=== PATIENT | male | born 1970 | race Caucasian/White ===

== ENCOUNTER 2016-03-31 20:43 | Emergency (ER) | payer BC ==
--- NOTE | 2016-03-31 22:01 | DIAGNOSTIC IMAGING REPORT ---
PROCEDURE: XR CHEST 2 VIEW INDICATION: Chest pain. Recent diagnosis of pulmonary embolus. TECHNIQUE: PA and lateral views. COMPARISON: Compared to CTA thorax on 03/23/2016. FINDINGS: Allowing for overlying wires and electrodes, lungs are clear. Heart and mediastinum are normal. Thorax is normal. IMPRESSION: 1. Negative chest.
--- NOTE | 2016-04-01 01:49 | ED ORDER SUMMARY ---
..... Patient: TARYN DEVINE OrderSheet [facility] VisitID: [id number] [place] [address] 46y, M Registration Date/Time: 03/31/2016 ORDER SHEET Weight: 104.3 kg (stated) Allergies: None GENERAL ORDERS: Cardiac Panel Stat (20:58 03/31/2016 DBeyer R.N. per protocol) (Ack 21:00 LTapper) (21:39 LTapper) PT with INR Urgent (20:58 03/31/2016 DBeyer R.N. per protocol) (Ack 21:00 LTapper) (21:39 LTapper) EKG - ER Stat (:58 03/31/2016 DBeyer R.N. per protocol) (Ack 21:00 LTapper) (21:24 LTapper) Chest 2V (recent PE) Urgent (21:20 [facility]/2016 [facility] (21:39 LTapper) Troponin-I (at 01:00) Urgent (23:02 [facility]2016 [facility] (Ack 23:03 Andreekimana) (1:40 Vimal R.N.) EKG - ER Repeat Stat (01:29 04/01/2016 [facility] (Ack 1:33 Teresitaegekimana) MEDICATION ORDERS: - (coumadin 10 mg po) (22:31 03/31/2016 [facility]) (22:44 DBeyer R.N.) Lovenox Subcut 100 mg (NOW) (22:31 03/31/2016 [facility] DO) (22:40 DBeyer R.N.) IV FLUIDS: IV Saline Lock (20:58 03/31/2016 DBeyer R.N. per protocol) (21:20 DBeyer R.N.) ORDER SHEET NOTES: [Electronically signed by Antonio Rizvi R.N. (02:20 04/01/2016)] [Electronically signed by Clarence Joseph DO (03:24 04/01/2016)] [Electronically locked/signed by Antonio Rizvi R.N. (02:20 04/01/2016)]
--- NOTE | 2016-04-01 01:49 | ED CLINICAL REPORT ---
Clinical Report - Physicians/Mid Levels [facility] [address] [place] [address] 03/31/2016 20:44 Patient: TARYN DEVINE Time Seen: 21:18. Arrived- By ambulance. Historian- patient and EMS personnel. HISTORY OF PRESENT ILLNESS Chief Complaint: CHEST DISCOMFORT. It is described as sharp and "pain" and it is described as located in the central chest and left chest area. No radiation. This started just prior to arrival and is still present. It was gradual in onset and has been waxing/waning. Onset during light activity. At its maximum, severity described as moderate. When seen in the E.D., severity described as mild. Modifying factors- worsened by movement. Relieved by rest. No nausea, vomiting, difficulty breathing or diaphoresis. Similar symptoms previously: ( States he had a similar presentation about 2 years ago - had negative cardiac w/u including ECG, cardiac serum markers, echocardiogram and stress test - all done at [facility]). Recent medical care: The patient was seen recently at this facility in the emergency department. Seen for similar symptoms. Evaluation/treatment: CT, labs and EKG. Diagnosis: (PE). REVIEW OF SYSTEMS No fever, chills, cough. No blood tinged sputum or frankly bloody sputum, pedal edema or calf pain. No fainting episodes, headache, sore throat, blurred vision or abdominal pain. No black stools, difficulty with urination, skin rash, enlarged lymph nodes or joint pain. No bloody stools. All systems otherwise negative, except as recorded above. PAST HISTORY Pulmonary embolism. PCP: Dr Canela. No history of aortic disease, coronary artery disease or congestive heart failure. Deep venous thrombosis. Surgeries: Vasectomy. Medications: Warfarin Sodium Oral 10 mg, daily (on tapering dose ). Allergies: None. SOCIAL HISTORY Never smoker. No alcohol use or drug use. ADDITIONAL NOTES The nursing notes have been reviewed. PHYSICAL EXAM Vital Signs: 03/31/2016 20:57 Temp: 98.3 F. 03/31/2016 20:54 BP: 128/73. HR: 74. RR: 18. O2 saturation: 94%. Appearance: Alert. Oriented X3. Anxious. Patient in mild distress. Eyes: Pupils equal, round and reactive to light. Eyes normal inspection. No scleral icterus or pale conjunctivae. ENT: Pharynx normal. No pharyngeal erythema or tonsillar exudate. Neck: Normal inspection. Neck supple. No JVD, carotid bruit or meningeal signs. CVS: Normal heart rate and rhythm. Heart sounds normal. Pulses normal. Respiratory: No respiratory distress. Breath sounds normal. Abdomen: Soft and nontender. Back: Normal external inspection. Skin: Skin warm and dry. Normal skin color. No rash. Normal skin turgor. Extremities: Extremities exhibit normal ROM. No calf tenderness. Neuro: Oriented X 3. No motor deficit. LABS, X-RAYS, AND EKG EKG: EKG time: (21:14). Normal sinus rhythm. Rate: 75. Normal P waves. Normal TAMAR. Normal QRS complex. Normal axis. Normal ST and T waves. The study has been interpreted contemporaneously by me. The EKG appears to be a good tracing. EKG #2: EKG time: (01:41). No acute process. Normal EKG. Normal sinus rhythm. Normal P waves. Normal TAMAR. Normal QRS complex. Normal axis. Normal ST and T waves. EKG unchanged when compared with prior EKG. The study has been interpreted contemporaneously by me. The EKG appears to be a good tracing. Rhythm Strip #1: Normal sinus rhythm. Regular rhythm. Narrow QRS complexes. No ectopy. Chest X-ray: No acute disease. Normal lung markings present. Normal heart size. Mediastinum normal. Great vessels normal. No infiltrate. Views: PA and lateral. Technique: good. The X-rays were interpreted contemporaneously by me. The X-rays were discussed with the radiologist (via PACS note). Laboratory Tests: CBC w Diff: (ERNA: 03/31/2016 21:36) ( MsgRcvd 03/31/2016 21:46) Final results Test Result Flag Units (Reference) WHITE BLOOD COUNT 7.7 K/uL (4.5-11.5) RED BLOOD COUNT 5.12 M/uL (4.50-5.90) HEMOGLOBIN 14.9 gm/dL (13.5-17.5) HEMATOCRIT 45.4 % (41.0-53.0) MEAN CELL VOLUME 89 fL (80-100) MEAN CORPUSCULAR HGB 29 pg (26-34) MEAN CORPUSCULAR HGB CONC 33 g/dL (31-37) RED CELL DISTRIBUTION WIDTH 13.5 % (11.6-14.8) PLATELET COUNT 206 K/uL (150-400) NEUTROPHIL % 66.3 % (50-75) LYMPH % 24.2 L % (25-40) MONO % 7.0 % (3-14) EOSINOPHIL % 2.2 % (0-4) BASOPHIL % 0.3 % (0-2) PT with INR: (ERNA: 03/31/2016 21:36) ( [facility] 03/31/2016 21:51) Final results Test Result Flag Units (Reference) INR 1.7 H (0.8-1.2) Low Intensity Therapy: INR 1.5-2.0 PT range 18.5-23.1Mod.Intensity Therapy: INR 2.0-3.0 PT range 23.1-31.5High Intensity Therapy: INR 2.5-3.5 PT range 27.4-35.5High Intensity Therapy 2: INR 3.0-4.0 PT range 31.5-39.3 Troponin-I: (ERNA: 03/31/2016 01:05) ( [facility] 04/01/2016 01:37) Final results Test Result Flag Units (Reference) TROPONIN I <0.05 ng/mL (0.00-1.5) TROPONIN REFERENCE RANGE:<0.1 NEGATIVE0.1-1.5 INDETERMINANT>1.5 POSITIVE CHEM 13 PANEL: (ERNA: 03/31/2016 21:36) ( [facility] 03/31/2016 22:19) Final results Test Result Flag Units (Reference) GLUCOSE 111 H mg/dL (70-110) BUN 20 H mg/dL (7-18) CREATININE 1.0 mg/dL (0.6-1.3) Estimated GFR >60 mL/min Estimated GFR- >60 mL/min Note: Persistent reduction over 3 months in eGFR<60 mL/min/1.73 m2 defines CKD. Patients with eGFR values>=60 mL/min/1.73 m2 may also have CKD if evidence ofpersistent proteinuria. Additional information may be foundat www.kidney.org. SODIUM 140 mmol/L (136-145) POTASSIUM 3.8 mmol/L (3.5-5.1) CHLORIDE 105 mmol/L (98-107) CARBON DIOXIDE 30 mmol/L (21-32) CALCIUM 8.4 L mg/dL (8.5-10.1) TOTAL PROTEIN 6.5 g/dL (6.4-8.2) ALBUMIN 3.4 g/dL (3.3-5.0) BILIRUBIN, TOTAL 0.2 mg/dL (0.0-1.0) ALKALINE PHOSPHATASE 66 U/L (46-116) AST (SGOT) 43 H U/L (15-37) ALT (SGPT) 143 H U/L (12-78) MAGNESIUM 1.8 mg/dL (1.8-2.4) CPK 101 U/L (24-260) TROPONIN I <0.05 L ng/mL (0.00-1.5) TROPONIN REFERENCE RANGE:<0.1 NEGATIVE0.1-1.5 INDETERMINANT>1.5 POSITIVE . Pulse Oximetry: 03/31/2016 20:54 O2 saturation: 94%. PROGRESS AND PROCEDURES Course of Care: Lovenox 100 mg subQ given. Coumadin 10 mg PO given. Patient is stable. The patient's symptoms are now gone. Physical exam findings are improved. ECG and trop I x 2 are neg. CXR is unchanged. Pt with prior extensive cardiac w/u. No indication of propogating / recurrent PE now- I will hold repeat CT pulm angio as pt is pain free and no signs of right heart failure now - due to radiation and contrast risk > likely benefit. Pt and spouse are happy with this approach 04/01/2016 01:01 HR: 54. RR: 18. O2 saturation: 98%. 03/31/2016 22:46 BP: 120/67. HR: 76. O2 saturation: 97%. 02:06 04/01/16. BP: 120/67. HR: 61. RR: 18. O2 saturation: 99%. Temp: 98.2 F. Pain level now 0/10. Patient/family counseled. Old ED records reviewed. Disposition: Discharged. Condition: stable and improved. CLINICAL IMPRESSION Atypical chest pain .12 lead EKG performed. Recent pulmonary embolism. No acute cor pulmonale, hypotension or respiratory failure. INSTRUCTIONS Do not work for three days. Drink plenty of fluids. Warnings: Further evaluation is necessary. It is very important to follow up with a physician. GENERAL WARNINGS: Return or contact your physician immediately if your condition worsens or changes unexpectedly, if not improving as expected, or if other problems arise. Your Current Medications: CONTINUE TAKING THE FOLLOWING MEDICATIONS: Warfarin Sodium Oral : 10 mg daily, on tapering dose. Follow-up: Follow up with your doctor GERALD tomorrow. (Electronically signed by Clarence Joseph DO 04/01/2016 3:24)
--- NOTE | 2016-04-01 01:49 | ED ORDER SUMMARY ---
..... Patient: TARYN DEVINE OrderSheet [facility] VisitID: [id number] [place] [address] 46y, M Registration Date/Time: 03/31/2016 ORDER SHEET Weight: 104.3 kg (stated) Allergies: None GENERAL ORDERS: Cardiac Panel Stat (20:58 03/31/2016 DBeyer R.N. per protocol) (Ack 21:00 LTapper) (21:39 LTapper) PT with INR Urgent (20:58 03/31/2016 DBeyer R.N. per protocol) (Ack 21:00 LTapper) (21:39 LTapper) EKG - ER Stat (:58 03/31/2016 DBeyer R.N. per protocol) (Ack 21:00 LTapper) (21:24 LTapper) Chest 2V (recent PE) Urgent (21:20 [facility] (21:39 LTapper) Troponin-I (at 01:00) Urgent (23:02 03/31/2016 [facility] (Ack 23:03 Andreekimana) (1:40 Vimal R.N.) EKG - ER Repeat Stat (01:29 04/01/2016 [facility]) (Ack 1:33 Teresitaegekimana) MEDICATION ORDERS: - (coumadin 10 mg po) (22:31 03/31/2016 [facility]) (22:44 DBeyer R.N.) Lovenox Subcut 100 mg (NOW) (22:31 03/31/2016 [facility] DO) (22:40 DBeyer R.N.) IV FLUIDS: IV Saline Lock (20:58 03/31/2016 DBeyer R.N. per protocol) (21:20 DBeyer R.N.) ORDER SHEET NOTES: [Electronically signed by Antonio Rizvi R.N. (02:20 04/01/2016)] [Electronically signed by Clarence Joseph DO (03:24 04/01/2016)] [Electronically locked/signed by Antonio Rizvi R.N. (02:20 04/01/2016)]
--- NOTE | 2016-04-01 01:49 | ED NURSING NOTES ---
Clinical Report - Nurses [facility] [address] [place] [address] 03/31/2016 20:44 Patient: TARYN DEVINE TRIAGE Triage time 20:54 Mar 31 2016. Acuity: LEVEL 3. Chief Complaint: CHEST PAIN. --20:56 Antonio Rizvi R.N. 20:54 03/31/16. BP: 128/73. HR: 74. RR: 18. O2 saturation: 94%. Pain level now 07/07. --20:56 Antonio Rizvi R.N. 20:57 03/31/16. Temp: 98.3 F. --20:57 Antonio Rizvi R.N. Weight: 104.3 kg stated. Height/Length: 68 inches Per Patient. BMI: 35. --20:57 Antonio Rizvi R.N. Medications Warfarin Sodium Oral 10 mg, daily (on tapering dose ). --20:55 Antonio Rizvi R.N. Allergies None. --20:55 Antonio Rizvi R.N. History Arrived by EMS. Historian: patient. ( Pt arrives via ems report of sudden onset cp given 2x nitro and 325 aspirin in route. recent diagnosed with bilat PE). This started just prior to arrival. --20:56 Antonio Rizvi R.N. The patient has had difficulty breathing. --20:57 Antonio Rizvi R.N. SOCIAL HX: Never smoker. No alcohol use or drug use. --20:58 Antonio Rizvi R.N. PROBLEMS: DVT - Deep Venous Thrombosis. Chest Pain. Pulmonary Embolism. --20:55 Antonio Rizvi R.N. ADDITIONAL SURGERIES: Vasectomy. --20:55 Antonio Rizvi R.N. Interventions ID band on patient. To treatment room. --20:56 Antonio Rizvi R.N. PHYSICAL ASSESSMENT GENERAL / NEURO / PSYCH: Alert. Oriented X 4. Appears in no acute distress. RESPIRATORY: Respirations not labored. Chest nontender. Breath sounds within normal limits. CVS: Normal sinus rhythm noted. GI / : Abdomen soft. EXTREMITIES: No lower extremity edema. --20:56 Antonio Rizvi R.N. NURSING PROGRESS NOTES 20:59 03/31/2016 Site #1 started prior to arrival by EMS via IV in the left antecubital space with an 18g angiocath. --20:59 Antonio Rizvi R.N. Monitoring of patient in place. Patient gowned. Reassurance given. Two patient identifiers checked. Side rails up x 1. Bed placed in lowest position. --20:59 Antonio Rizvi R.N. 21:50 03/31/16. HR: 66. O2 saturation: 96%. --21:50 Antonio Rizvi R.N. 22:40 03/31/2016 Lovenox (Enoxaparin Sodium) Subcutaneous 100 mg given. Given in the right abdomen. Allergies verified and confirmed 5 rights. (dose confirmed by Elvis Wood). --22:40 Antonio Rizvi R.N. 22:44 03/31/2016 Coumadin (Warfarin Sodium) PO 10 mg given. Allergies verified and confirmed 5 rights. (1.7inr). --22:44 Antonio Rizvi R.N. 22:46 03/31/16. BP: 120/67. HR: 76. O2 saturation: 97%. Pain level now 0/10. --22:47 Antonio Rizvi R.N. ( Pt ambulated to bathroom steady on his feet.). --23:43 Antonio Rizvi R.N. ( Lab at bedside for draw). --01:07 Antonio Rizvi R.N. 01:04/01/16. HR: 54. RR: 18. O2 saturation: 98%. Pain level now 2/10. --01:07 Antonio Rizvi R.N. DISPOSITION / DISCHARGE Departure time: 02:07 Apr 01 2016. ( Pt ambulated on discharge steady on his feet pt verbalized understanding of discharge instructions and follow up care.). --02:07 Antonio Rizvi R.N. 02:06 04/01/16. BP: 120/67. HR: 61. RR: 18. O2 saturation: 99%. Temp: 98.2 F. Pain level now 0/10. --02:07 Antonio Rizvi R.N. No learning barriers present. Reviewed warnings. Patient verbalized understanding. Written instructions provided in Turkish. The patient was discharged by the physician. He was discharged home. --02:07 Antonio Rizvi R.N. Locked/Released at 04/01/2016 2:20 by Antonio Rizvi R.N.
--- NOTE | 2016-04-01 03:25 | ED DISCHARGE INSTRUCTIONS ---
Patient: TARYN DEVINE General Instructions [facility] VisitID: [id number] [place] [address] 46y, M Registration Date/Time: 03/31/2016 Atypical chest pain .12 lead EKG performed. Recent pulmonary embolism. No acute cor pulmonale, hypotension or respiratory failure. INSTRUCTIONS Do not work for three days. Drink plenty of fluids. Warnings: Further evaluation is necessary. It is very important to follow up with a physician. GENERAL WARNINGS: Return or contact your physician immediately if your condition worsens or changes unexpectedly, if not improving as expected, or if other problems arise. Your Current Medications: CONTINUE TAKING THE FOLLOWING MEDICATIONS: Warfarin Sodium Oral : 10 mg daily, on tapering dose. Follow-up: Follow up with your doctor GERALD tomorrow. ADDITIONAL INFORMATION Chest Pain, Noncardiac Based on your visit today, the exact cause of your chest pain is not certain. Your condition does not seem serious and your pain does not appear to be coming from your heart. However, sometimes the signs of a serious problem take more time to appear. Therefore, please watch for the warning signs listed below. Home Care: Rest today and avoid strenuous activity. Take any prescribed medicine as directed. Follow Up with your doctor or this facility as instructed or if you do not start to feel better within 24 hours. Get Prompt Medical Attention if any of the following occur: A change in the type of pain: if it feels different, becomes more severe, lasts longer, or begins to spread into your shoulder, arm, neck, jaw or back Shortness of breath or increased pain with breathing Cough with dark colored sputum (phlegm) or blood Weakness, dizziness, or fainting Fever of 100.4F (38C) or higher, or as directed by your healthcare provider Swelling, pain or redness in one leg You have been given the following additional information: Chest Pain, Noncardiac Do not work for three days. (Electronically signed by Clarence Joseph DO 04/01/2016 3:24)
--- NOTE | 2016-04-01 03:25 | ED MED RECONCILIATION SUMMARY ---
Patient: TARYN DEVINE Medication Reconciliation Report [facility] VisitID: [id number] [address] [place] [address] 46y, M Registration Date/Time: 03/31/2016 Weight: 104.3 kg Height/Length: 68 in. BMI: 35.0 ALLERGIES: None The patient's Home Medications are listed below: CONTINUE TAKING THE FOLLOWING MEDICATIONS: Warfarin Sodium Oral 10 mg, daily, on tapering dose The source(s) of the original Home Medication information: Not obtained. The following Medications were given to the patient in the Emergency Department: Lovenox [Subcutaneous] Subcutaneous 100 mg, administered: 03/31/2016 10:40:00 PM Coumadin [PO] PO 10 mg, administered: 03/31/2016 10:44:00 PM The following Medications were prescribed to the patient: None.
--- NOTE | 2016-04-01 03:25 | ED MED RECONCILIATION SUMMARY ---
Patient: TARYN DEVINE Medication Reconciliation Report [facility] VisitID: [id number] [address] [place] [address] 46y, M Registration Date/Time: 03/31/2016 Weight: 104.3 kg Height/Length: 68 in. BMI: 35.0 ALLERGIES: None The patient's Home Medications are listed below: CONTINUE TAKING THE FOLLOWING MEDICATIONS: Warfarin Sodium Oral 10 mg, daily, on tapering dose The source(s) of the original Home Medication information: Not obtained. The following Medications were given to the patient in the Emergency Department: Lovenox [Subcutaneous] Subcutaneous 100 mg, administered: 03/31/2016 10:40:00 PM Coumadin [PO] PO 10 mg, administered: 03/31/2016 10:44:00 PM The following Medications were prescribed to the patient: None.
--- NOTE | 2016-04-01 03:25 | ED DISCHARGE INSTRUCTIONS ---
Patient: TARYN DEVINE General Instructions [facility] VisitID: [id number] [place] [address] 46y, M Registration Date/Time: 03/31/2016 Atypical chest pain .12 lead EKG performed. Recent pulmonary embolism. No acute cor pulmonale, hypotension or respiratory failure. INSTRUCTIONS Do not work for three days. Drink plenty of fluids. Warnings: Further evaluation is necessary. It is very important to follow up with a physician. GENERAL WARNINGS: Return or contact your physician immediately if your condition worsens or changes unexpectedly, if not improving as expected, or if other problems arise. Your Current Medications: CONTINUE TAKING THE FOLLOWING MEDICATIONS: Warfarin Sodium Oral : 10 mg daily, on tapering dose. Follow-up: Follow up with your doctor GERALD tomorrow. ADDITIONAL INFORMATION Chest Pain, Noncardiac Based on your visit today, the exact cause of your chest pain is not certain. Your condition does not seem serious and your pain does not appear to be coming from your heart. However, sometimes the signs of a serious problem take more time to appear. Therefore, please watch for the warning signs listed below. Home Care: Rest today and avoid strenuous activity. Take any prescribed medicine as directed. Follow Up with your doctor or this facility as instructed or if you do not start to feel better within 24 hours. Get Prompt Medical Attention if any of the following occur: A change in the type of pain: if it feels different, becomes more severe, lasts longer, or begins to spread into your shoulder, arm, neck, jaw or back Shortness of breath or increased pain with breathing Cough with dark colored sputum (phlegm) or blood Weakness, dizziness, or fainting Fever of 100.4F (38C) or higher, or as directed by your healthcare provider Swelling, pain or redness in one leg You have been given the following additional information: Chest Pain, Noncardiac Do not work for three days. (Electronically signed by Clarence Joseph DO 04/01/2016 3:24)
--- NOTE | 2016-04-01 03:25 | ED MAR SUMMARY ---
..... Medication Administration Record [facility] [address] [place] [address] Patient: TARYN DEVINE Visit ID: [id number] 46y, M Weight: 104.3 kg Height/Length: 68 in BMI: 35 ALLERGIES: None Given 22:40 03/31/2016 Antonio Rizvi RRohanNRohan Medication Administered: LOVENOX [SUBCUTANEOUS] (ENOXAPARIN SODIUM), Dose: 100 mg Subcutaneous. Medication Ordered: Lovenox Subcut 100 mg (NOW). Given 22:44 03/31/2016 Antonio Rizvi, RRohanNRohan Medication Administered: COUMADIN [PO] (WARFARIN SODIUM), Dose: 10 mg PO. Medication Ordered: - (coumadin 10 mg po).
--- NOTE | 2016-04-01 03:25 | ED MAR SUMMARY ---
..... Medication Administration Record [facility] [address] [place] [address] Patient: TARYN DEVINE Visit ID: [id number] 46y, M Weight: 104.3 kg Height/Length: 68 in BMI: 35 ALLERGIES: None Given 22:40 03/31/2016 Antonio Rizvi RRohanNRohan Medication Administered: LOVENOX [SUBCUTANEOUS] (ENOXAPARIN SODIUM), Dose: 100 mg Subcutaneous. Medication Ordered: Lovenox Subcut 100 mg (NOW). Given 22:44 03/31/2016 Antonio Rizvi, RRohanNRohan Medication Administered: COUMADIN [PO] (WARFARIN SODIUM), Dose: 10 mg PO. Medication Ordered: - (coumadin 10 mg po).
== END 2016-04-01 02:09 | disposition home or self-care (01) ==
LOC: ED SRH 20:43
DX: R07.89 Other chest pain (principal); I26.99 Other pulmonary embolism without acute cor pulmonale; I82.409 Acute embolism and thrombosis of unspecified deep veins of unspecified lower extremity; Z79.01 Long term (current) use of anticoagulants
CPT/HCPCS: 90074; 90100; 90616; 92610; 92720; 94060; 95059

== ENCOUNTER 2016-06-05 10:37 | Emergency (ER) | payer BC ==
--- NOTE | 2016-06-05 12:18 | ED ORDER SUMMARY ---
..... Patient: TARYN DEVINE OrderSheet [facility] VisitID: [id number] [address] [place] [address] 46y, M Registration Date/Time: 06/05/2016 ORDER SHEET Weight: 99.7 kg (stated) Allergies: None GENERAL ORDERS: CBC w Diff Urgent (11:06/05/2016 Ted Clemons) (Ack 11:28 TBergley) (11:45 TBergley) CMP Urgent (11:06/05/2016 Ted Clemons) (Ack 11:28 TBergley) (11:45 TBergley) PT with INR Urgent (11:06/05/2016 Ted Clemons) (Ack 11:28 TBergley) (11:45 TBergley) PTT Urgent (:06/05/2016 Ted Clemons) (Ack 11:28 TBergley) (11:45 TBergley) MEDICATION ORDERS: IV FLUIDS: ORDER SHEET NOTES: This document has not been locked and should not be saved in the medical record.
--- NOTE | 2016-06-05 12:18 | ED NURSING NOTES ---
Clinical Report - Nurses [facility] [address] [place] [address] 06/05/2016 10:41 [id number] Triage time 10:46. Acuity: LEVEL 3. Chief Complaint: DIZZINESS and LIGHT HEADED. Alert. No acute distress. ROSI COMA SCORE: [place] Coma Scale: 15- eyes open spontaneously (4); best verbal response- oriented x 4 (5); best motor response- obeys commands (6). --10:52 Mildred Espitia R.N. 10:46 06/05/16. BP: 129/78. HR: 50. RR: 16. O2 saturation: 98% on room air. Temp: 97.7 F (oral). Pain level now: 0/10. --10:52 Mildred Espitia R.N. Weight: 99.7 kg stated. Height/Length: 68 inches Per Patient. BMI: 33.4. --10:48 Mildred Espitia R.N. Medications Warfarin Sodium Oral 10 mg, daily (M,W,F - 15 mg S,,,SA - 10 mg ). --10:47 Mildred Espitia R.N. Medication/allergy information source: the patient. --10:52 Mildred Espitia R.N. Allergies None. --10:48 Mildred Espitia R.N. History Arrived by private vehicle. Historian: patient. Unaccompanied. Primary physician (Hilton). This started yesterday. SOCIAL HX: Smoker- current status unknown (no). Occasional alcohol use. No drug use. FALL RISK ASSESSMENT: Fall risk assessment completed. No fall risk identified. FUNCTIONAL ASSESSMENT: Functional assessment: no impairments noted. LEARNING NEEDS ASSESSMENT: The learning needs assessment revealed no barriers. --10:52 Milderd Espitia R.N. PROBLEMS: Atypical Chest Pain. DVT - Deep Venous Thrombosis. Chest Pain. Pulmonary Embolism. --10:49 Mildred Espitia R.N. ADDITIONAL SURGERIES: Vasectomy. --10:49 Mildred Espitia R.N. Assessment GENERAL / NEURO / PSYCH: Alert. Oriented X 4. Appears in no acute distress. Patient appears calm and cooperative. RESPIRATORY: Respirations not labored. SKIN: Skin is warm and dry. --10:52 Mildred Espitia R.N. Interventions ID band on patient. To treatment room. --10:52 Mildred Espitia R.N. NURSING PROGRESS NOTES 11:27 06/05/16. risk reduction counselor, pulse oximeter and NIBP monitor placed on patient; erco machine operator- Lead II and aVR; monitor alarms on. Head of bed elevated. Two patient identifiers checked. Call light placed in reach. Bed placed in lowest position. Brakes of bed on. --11:27 Ruddy Thakur R.N. 11:40 06/05/16. BP: 132/72. HR: 64. RR: 16. O2 saturation: 99% on room air. Pain level now: 0/10. --12:32 Ruddy Thakur R.N. 11:10 06/05/16. BP: 122/74. HR: 55. RR: 16. O2 saturation: 98% on room air. Pain level now: 0/10. --12:33 Ruddy Thakur R.N. DISPOSITION / DISCHARGE 12:40 06/05/16. Departure time: 1240. Condition at departure: unchanged and stable. No learning barriers present. Discharge instructions provided and reviewed with the patient. Work note given. Patient verbalized understanding. Written instructions provided in Croatian. The patient was discharged by the physician. He was discharged home. He left the Emergency Department ambulatory and via private vehicle. Patient driving. --12:40 Ruddy Thakur R.N. 12:37 06/05/16. BP: 119/73. HR: 65. RR: 16. O2 saturation: 100% on room air. Temp: 97.7 F. Pain level now: 0/10. --12:40 Ruddy Thakur R.N. Locked/Released at 06/05/2016 13:06 by Ruddy Thakur R.N.
--- NOTE | 2016-06-05 12:18 | ED NURSING NOTES ---
Clinical Report - Nurses [facility] [address] [place] [address] 06/05/2016 10:41 [id number] TRI[facility] Triage time 10:46. Acuity: LEVEL 3. Chief Complaint: DIZZINESS and LIGHT HEADED. Alert. No acute distress. ROSI COMA SCORE: [place] Coma Scale: 15- eyes open spontaneously (4); best verbal response- oriented x 4 (5); best motor response- obeys commands (6). --10:52 Mildred Espitia R.N. 10:46 06/05/16. BP: 129/78. HR: 50. RR: 16. O2 saturation: 98% on room air. Temp: 97.7 F (oral). Pain level now: 0/10. --10:52 Mildred Espitia R.N. Weight: 99.7 kg stated. Height/Length: 68 inches Per Patient. BMI: 33.4. --10:48 Mildred Espitia R.N. Medications Warfarin Sodium Oral 10 mg, daily (M,W,F - 15 mg S,,,SA - 10 mg ). --10:47 Mildred Espitia R.N. Medication/allergy information source: the patient. --10:52 Mildred Espitia R.N. Allergies None. --10:48 Mildred Espitia R.N. History Arrived by private vehicle. Historian: patient. Unaccompanied. Primary physician (Hilton). This started yesterday. SOCIAL HX: Smoker- current status unknown (no). Occasional alcohol use. No drug use. FALL RISK ASSESSMENT: Fall risk assessment completed. No fall risk identified. FUNCTIONAL ASSESSMENT: Functional assessment: no impairments noted. LEARNING NEEDS ASSESSMENT: The learning needs assessment revealed no barriers. --10:52 Mildred Espitia R.N. PROBLEMS: Atypical Chest Pain. DVT - Deep Venous Thrombosis. Chest Pain. Pulmonary Embolism. --10:49 Mildred Espitia R.N. ADDITIONAL SURGERIES: Vasectomy. --10:49 Mildred Espitia R.N. Assessment GENERAL / NEURO / PSYCH: Alert. Oriented X 4. Appears in no acute distress. Patient appears calm and cooperative. RESPIRATORY: Respirations not labored. SKIN: Skin is warm and dry. --10:52 Mildred Espitia R.N. Interventions ID band on patient. To treatment room. --10:52 Mildred Espitia R.N. NURSING PROGRESS NOTES 11:27 06/05/16. surveillance monitor, pulse oximeter and NIBP monitor placed on patient; surveillance monitor- Lead II and aVR; monitor alarms on. Head of bed elevated. Two patient identifiers checked. Call light placed in reach. Bed placed in lowest position. Brakes of bed on. --11:27 Ruddy Thakur R.N. 11:40 06/05/16. BP: 132/72. HR: 64. RR: 16. O2 saturation: 99% on room air. Pain level now: 0/10. --12:32 Ruddy Thakur R.N. 11:10 06/05/16. BP: 122/74. HR: 55. RR: 16. O2 saturation: 98% on room air. Pain level now: 0/10. --12:33 Ruddy Thakur R.N. DISPOSITION / DISCHARGE 12:40 06/05/16. Departure time: 1240. Condition at departure: unchanged and stable. No learning barriers present. Discharge instructions provided and reviewed with the patient. Work note given. Patient verbalized understanding. Written instructions provided in Georgian. The patient was discharged by the physician. He was discharged home. He left the Emergency Department ambulatory and via private vehicle. Patient driving. --12:40 Ruddy Thakur R.N. 12:37 06/05/16. BP: 119/73. HR: 65. RR: 16. O2 saturation: 100% on room air. Temp: 97.7 F. Pain level now: 0/10. --12:40 Ruddy Thakur R.N. Locked/Released at 06/05/2016 13:06 by Ruddy Thakur R.N.
--- NOTE | 2016-06-05 12:18 | ED CLINICAL REPORT ---
Clinical Report - Physicians/Mid Levels [facility] [address] [place] [address] 06/05/2016 10:41 Patient: TARYN DEVINE *This is a preliminary document and is subject to change Time Seen: 11:02; initial patient contact. Arrived- By private vehicle. Historian- patient. HISTORY OF PRESENT ILLNESS Chief Complaint: DIZZINESS. Described as feeling light-headed. Severity described as mild at its maximum. When seen in the E.D., it was gone. Modifying factors- relieved by nothing. Not worsened by anything. This started yesterday and is now gone. No nausea or vomiting. Similar symptoms previously: None. Recent medical care: Not recently seen/assessed. LABS, X-RAYS, AND EKG Laboratory Tests: CBC w Diff: (ERNA: 06/05/2016 11:40) ( MsgRcvd 06/05/2016 11:45) Final results Test Result Flag Units (Reference) WHITE BLOOD COUNT 5.5 K/uL (4.5-11.5) RED BLOOD COUNT 5.11 M/uL (4.50-5.90) HEMOGLOBIN 14.8 gm/dL (13.5-17.5) HEMATOCRIT 44.7 % (41.0-53.0) MEAN CELL VOLUME 88 fL (80-100) MEAN CORPUSCULAR HGB 29 pg (26-34) MEAN CORPUSCULAR HGB CONC 33 g/dL (31-37) RED CELL DISTRIBUTION WIDTH 14.4 % (11.6-14.8) PLATELET COUNT 198 K/uL (150-400) NEUTROPHIL % 66.5 % (50-75) LYMPH % 25.2 % (25-40) MONO % 7.0 % (3-14) EOSINOPHIL % 0.9 % (0-4) BASOPHIL % 0.4 % (0-2) PT with INR: (ERNA: 06/05/2016 11:40) ( MsgRcvd 06/05/2016 12:01) Final results Test Result Flag Units (Reference) INR 2.2 H (0.8-1.2) Low Intensity Therapy: INR 1.5-2.0 PT range 18.5-23.1Mod.Intensity Therapy: INR 2.0-3.0 PT range 23.1-31.5High Intensity Therapy: INR 2.5-3.5 PT range 27.4-35.5High Intensity Therapy 2: INR 3.0-4.0 PT range 31.5-39.3 APTT 34 SECONDS (24-34) CMP: (ERNA: 06/05/2016 11:40) ( MsgRcvd 06/05/2016 12:00) Final results Test Result Flag Units (Reference) GLUCOSE 102 mg/dL (70-110) BUN 12 mg/dL (7-18) CREATININE 0.9 mg/dL (0.6-1.3) Estimated GFR >60 mL/min Estimated GFR- >60 mL/min Note: Persistent reduction over 3 months in eGFR<60 mL/min/1.73 m2 defines CKD. Patients with eGFR values>=60 mL/min/1.73 m2 may also have CKD if evidence ofpersistent proteinuria. Additional information may be foundat www.kidney.org. SODIUM 141 mmol/L (136-145) POTASSIUM 4.1 mmol/L (3.5-5.1) CHLORIDE 104 mmol/L (98-107) CARBON DIOXIDE 31 mmol/L (21-32) CALCIUM 8.2 L mg/dL (8.5-10.1) TOTAL PROTEIN 6.8 g/dL (6.4-8.2) ALBUMIN 3.5 g/dL (3.3-5.0) BILIRUBIN, TOTAL 0.5 mg/dL (0.0-1.0) ALKALINE PHOSPHATASE 60 U/L (46-116) AST (SGOT) 29 U/L (15-37) ALT (SGPT) 34 U/L (12-78) . Jl B[address]
--- NOTE | 2016-06-05 12:18 | ED CLINICAL REPORT ---
Clinical Report - Physicians/Mid Levels [facility] [address] [place] [address] 06/05/2016 10:41 Patient: TARYN DEVINE *This is a preliminary document and is subject to change Time Seen: 11:02; initial patient contact. Arrived- By private vehicle. Historian- patient. HISTORY OF PRESENT ILLNESS Chief Complaint: DIZZINESS. Described as feeling light-headed. Severity described as mild at its maximum. When seen in the E.D., it was gone. Modifying factors- relieved by nothing. Not worsened by anything. This started yesterday and is now gone. No nausea or vomiting. Similar symptoms previously: None. Recent medical care: Not recently seen/assessed. LABS, X-RAYS, AND EKG Laboratory Tests: CBC w Diff: (ERNA: 06/05/2016 11:40) ( MsgRcvd 06/05/2016 11:45) Final results Test Result Flag Units (Reference) WHITE BLOOD COUNT 5.5 K/uL (4.5-11.5) RED BLOOD COUNT 5.11 M/uL (4.50-5.90) HEMOGLOBIN 14.8 gm/dL (13.5-17.5) HEMATOCRIT 44.7 % (41.0-53.0) MEAN CELL VOLUME 88 fL (80-100) MEAN CORPUSCULAR HGB 29 pg (26-34) MEAN CORPUSCULAR HGB CONC 33 g/dL (31-37) RED CELL DISTRIBUTION WIDTH 14.4 % (11.6-14.8) PLATELET COUNT 198 K/uL (150-400) NEUTROPHIL % 66.5 % (50-75) LYMPH % 25.2 % (25-40) MONO % 7.0 % (3-14) EOSINOPHIL % 0.9 % (0-4) BASOPHIL % 0.4 % (0-2) PT with INR: (ERNA: 06/05/2016 11:40) ( MsgRcvd 06/05/2016 12:01) Final results Test Result Flag Units (Reference) INR 2.2 H (0.8-1.2) Low Intensity Therapy: INR 1.5-2.0 PT range 18.5-23.1Mod.Intensity Therapy: INR 2.0-3.0 PT range 23.1-31.5High Intensity Therapy: INR 2.5-3.5 PT range 27.4-35.5High Intensity Therapy 2: INR 3.0-4.0 PT range 31.5-39.3 APTT 34 SECONDS (24-34) CMP: (ERNA: 06/05/2016 11:40) ( MsgRcvd 06/05/2016 12:00) Final results Test Result Flag Units (Reference) GLUCOSE 102 mg/dL (70-110) BUN 12 mg/dL (7-18) CREATININE 0.9 mg/dL (0.6-1.3) Estimated GFR >60 mL/min Estimated GFR- >60 mL/min Note: Persistent reduction over 3 months in eGFR<60 mL/min/1.73 m2 defines CKD. Patients with eGFR values>=60 mL/min/1.73 m2 may also have CKD if evidence ofpersistent proteinuria. Additional information may be foundat www.kidney.org. SODIUM 141 mmol/L (136-145) POTASSIUM 4.1 mmol/L (3.5-5.1) CHLORIDE 104 mmol/L (98-107) CARBON DIOXIDE 31 mmol/L (21-32) CALCIUM 8.2 L mg/dL (8.5-10.1) TOTAL PROTEIN 6.8 g/dL (6.4-8.2) ALBUMIN 3.5 g/dL (3.3-5.0) BILIRUBIN, TOTAL 0.5 mg/dL (0.0-1.0) ALKALINE PHOSPHATASE 60 U/L (46-116) AST (SGOT) 29 U/L (15-37) ALT (SGPT) 34 U/L (12-78) . Jl [address]
--- NOTE | 2016-06-05 12:18 | ED ORDER SUMMARY ---
..... Patient: TARYN DEVINE OrderSheet [facility] VisitID: [id number] [address] [place] [address] 46y, M Registration Date/Time: 06/05/2016 ORDER SHEET Weight: 99.7 kg (stated) Allergies: None GENERAL ORDERS: CBC w Diff Urgent (11:06/05/2016 Ted Clemons) (Ack 11:28 TBergley) (11:45 TBergley) CMP Urgent (11:06/05/2016 Ted Clemons) (Ack 11:28 TBergley) (11:45 TBergley) PT with INR Urgent (11:06/05/2016 Ted Clemons) (Ack 11:28 TBergley) (11:45 TBergley) PTT Urgent (:06/05/2016 Ted Clemons) (Ack 11:28 TBergley) (11:45 TBergley) MEDICATION ORDERS: IV FLUIDS: ORDER SHEET NOTES: This document has not been locked and should not be saved in the medical record.
--- NOTE | 2016-06-06 20:58 | ED MED RECONCILIATION SUMMARY ---
Patient: TARYN DEVINE Medication Reconciliation Report [facility] VisitID: [id number] [address] [place] [address] 46y, M Registration Date/Time: 06/05/2016 Weight: 99.7 kg Height/Length: 68 in. BMI: 33.4 ALLERGIES: None The patient's Home Medications are listed below: CONTINUE TAKING THE FOLLOWING MEDICATIONS: Warfarin Sodium Oral 10 mg, daily, M,W,F - 15 mgS,,TH,SA - 10 mg The source(s) of the original Home Medication information: patient The following Medications were given to the patient in the Emergency Department: None. The following Medications were prescribed to the patient: None.
--- NOTE | 2016-06-06 20:58 | ED DISCHARGE INSTRUCTIONS ---
Patient: TARYN DEVINE General Instructions [facility] VisitID: [id number] [address] [place] [address] 46y, M Registration Date/Time: 06/05/2016 Oral anticoagulation therapy with therapeutic INR. INSTRUCTIONS Do not work today. Your Current Medications: CONTINUE TAKING THE FOLLOWING MEDICATIONS: Warfarin Sodium Oral : 10 mg daily, ,,F - 15 mg ,,, - 10 mg. Follow-up: Follow up with your doctor if not well. Call for an appointment. Screening today revealed the patient's blood pressure to be in the pre-hypertensive range. The patient should follow up with a primary care provider for blood pressure management. Do not work today. (Electronically signed by Jl Bustillos Dr. 06/06/2016 20:58)
--- NOTE | 2016-06-06 20:58 | ED MED RECONCILIATION SUMMARY ---
Patient: TARYN DEVINE Medication Reconciliation Report [facility] VisitID: [id number] [address] [place] [address] 46y, M Registration Date/Time: 06/05/2016 Weight: 99.7 kg Height/Length: 68 in. BMI: 33.4 ALLERGIES: None The patient's Home Medications are listed below: CONTINUE TAKING THE FOLLOWING MEDICATIONS: Warfarin Sodium Oral 10 mg, daily, M,W,F - 15 mgS,,TH,SA - 10 mg The source(s) of the original Home Medication information: patient The following Medications were given to the patient in the Emergency Department: None. The following Medications were prescribed to the patient: None.
--- NOTE | 2016-06-06 20:58 | ED MAR SUMMARY ---
..... Medication Administration Record [facility] [address] [place], [place] [id number] Patient: TARYN DEVINE Visit ID: [id number] 46y, M Weight: 99.7 kg Height/Length: 68 in BMI: 33.4 ALLERGIES: None
--- NOTE | 2016-06-06 20:58 | ED DISCHARGE INSTRUCTIONS ---
Patient: TARYN DEVINE General Instructions [facility] VisitID: [id number] [address] [place] [address] 46y, M Registration Date/Time: 06/05/2016 Oral anticoagulation therapy with therapeutic INR. INSTRUCTIONS Do not work today. Your Current Medications: CONTINUE TAKING THE FOLLOWING MEDICATIONS: Warfarin Sodium Oral : 10 mg daily, ,,F - 15 mg ,,, - 10 mg. Follow-up: Follow up with your doctor if not well. Call for an appointment. Screening today revealed the patient's blood pressure to be in the pre-hypertensive range. The patient should follow up with a primary care provider for blood pressure management. Do not work today. (Electronically signed by Jl Bustillos Dr. 06/06/2016 20:58)
--- NOTE | 2016-06-06 20:58 | ED MAR SUMMARY ---
..... Medication Administration Record [facility] [address] [place], [place] [id number] Patient: TARYN DEVINE Visit ID: [id number] 46y, M Weight: 99.7 kg Height/Length: 68 in BMI: 33.4 ALLERGIES: None
== END 2016-06-05 12:40 | disposition home or self-care (01) ==
LOC: ED SRH 10:37
DX: R42 Dizziness and giddiness (principal); Z51.81 Encounter for therapeutic drug level monitoring; Z79.01 Long term (current) use of anticoagulants; Z86.718 Personal history of other venous thrombosis and embolism
CPT/HCPCS: 90074; 90100; 94001; 94060; 95059